=== PATIENT | female | born 1955 | race Caucasian/White ===

== ENCOUNTER 2017-07-13 20:27 | Emergency (ER) | payer MEDICAID ==
[~2017-07-13] VITALS: Ht 152.4 cm; Wt 63.0 kg
[2017-07-13] MEDS ORDERED: IBUPROFEN 800MG TABLET PO ONE (21:30)
[2017-07-13 23:00] VITALS: BP 134/71
== END 2017-07-13 23:45 | disposition home or self-care (01) ==
LOC: ER 20:47
DX: S80.211A Abrasion, right knee, initial encounter (principal); S50.311A Abrasion of right elbow, initial encounter; M54.5 Low back pain; M25.562 Pain in left knee; E11.9 Type 2 diabetes mellitus without complications; Y08.89XA Assault by other specified means, initial encounter; V03.10XA Pedestrian on foot injured in collision with car, pick-up truck or van in traffic accident, initial encounter; Y93.89 Activity, other specified; Y92.488 Other paved roadways as the place of occurrence of the external cause
CPT/HCPCS: 73552; 73562; 73630; 99284